=== PATIENT | female | born 1945 | race Caucasian/White ===

== ENCOUNTER → 2016-09-19 | Outpatient (CLI) | payer OTHER ==
[~2016-09-19] MED LIST: ATEN-173 PO; ATEN50TA8 PO; EPP3/2 INJ; LISI-787 PO; LPD600 PO; NAPR1CAP12 PO; OMEG10007 PO; OMEP20CA9 PO; SERT50TA PO
--- NOTE | 2016-09-19 13:55 | DIAGNOSTIC IMAGING REPORT ---
SOFT TIS HEAD/NECK-THYROID HISTORY: Multinodular goiter E04.2 Nontoxic multinodular goiter COMPARISON: 10/05/2014 FINDINGS: Right lobe: Heterogeneous internal architecture. Maximum dimension 4.8 cm. Several nodules are present measuring from 1.2 to1.5 cm maximum dimension. These are partially complex in terms of architecture and are unchanged from the prior exam. Left lobe: Maximum dimension 4.4 cm. Heterogeneous internal architecture. 2 nodules measuring 8 mm and 2.0 cm respectively. These are unchanged to slightly diminished in volume. Isthmus: No nodules. IMPRESSION: Findings consistent with a multi nodular goiter. Bilateral nodules are stable to perhaps slightly diminished in overall volume on the left. No new or interval process. The above report was generated using voice recognition software. It may contain grammatical, syntax or spelling errors. Electronically signed by: Vinod Jones M.D. 09/19/2016 1:53 PM Dictated Date/Time: 09/19/2016 1:44 PM
== END | disposition home or self-care (01) ==
LOC: C.ULTR 13:05
PROVIDERS: ATTEND Internal Medicine Endocrinology, Diabetes & Metabolism
DX: E04.2 Nontoxic multinodular goiter (principal)

== ENCOUNTER 2016-10-13 21:29 | Inpatient (IN) | payer OTHER ==
[~2016-10-13] VITALS: Ht 160 cm; Wt 79.2 kg
[~2016-10-13 21:29] MED LIST changes: -ATEN-173 PO; -LISI-787 PO; -NAPR1CAP12 PO
[2016-10-13] MEDS ORDERED: ONDANSETRON INJ 2 MG/ML 2 ML VIAL IV STA (21:40)
[2016-10-13] MEDS ORDERED: FENTANYL CITRATE INJ 50 MCG/1 ML 2 ML VIAL IV STA ×2 (21:40→22:10)
[2016-10-13 22:02] LABS: BASO % 0.4 %; BASO ABS # 0.04 K/uL (0-0.2); COMPLETE YES; HEMATOCRIT 40.2 % (37-47); IG% 0.2 %; LYMPH % 29.7 %; LYMPH ABS # 2.77 K/uL (1.2-3.4); MEAN CELL VOLUME 83.4 fL (80-100); MEAN CORPUSCULAR HEMOGLOBIN 28.6 pg (25-34); MEAN CORPUSCULAR HGB CONC 34.3 g/dl (32-36); MEAN PLATELET VOLUME 9.8 fL (7.4-10.4); MONO % 7.2 %; NEUT % 61.5 %; PLATELET COUNT 213 K/uL (130-400); RED BLOOD COUNT 4.82 M/uL (4.2-5.4); WHITE BLOOD COUNT 9.33 K/uL (4.8-10.8)
--- NOTE | 2016-10-13 22:05 | DIAGNOSTIC IMAGING REPORT ---
CHEST ONE VIEW PORTABLE HISTORY: 71 years-old Female acute chest pain. COMPARISON: Portable chest radiograph 05/08/2014, CTA of the chest 04/20/2013 TECHNIQUE: Portable upright AP view of the chest FINDINGS: Cardiomediastinal and hilar silhouettes are within normal limits. There is atherosclerosis of the aorta. Minimal biapical pleural-parenchymal scarring is noted without pneumothorax, pleural effusion or focal airspace consolidation. Subsegmental linear atelectasis or scarring involves the left lung base laterally. Lungs are mildly hyperinflated. Degenerative changes are seen about the bilateral shoulders. IMPRESSION: No acute cardiopulmonary process. The above report was generated using voice recognition software. It may contain grammatical, syntax or spelling errors. Electronically signed by: Tristin Hartman M.D. 10/13/2016 10:03 PM Dictated Date/Time: 10/13/2016 10:02 PM
[2016-10-13] MEDS ORDERED: ATEN-173 PO (22:12)
[2016-10-13 22:14] LABS: BUN/CREATININE RATIO 20.1 (10-20); CREATININE 0.86 mg/dl (0.60-1.20); POTASSIUM 2.9 mmol/L (3.5-5.1)
[2016-10-13] MEDS ORDERED: LISI-787 PO (22:14)
[2016-10-13 22:23] LABS: PROTHROMBIN TIME (PATIENT) 10.5 SECONDS (9.0-12.0)
[2016-10-13] MEDS ORDERED: POTASSIUM CHLORIDE 10 MEQ / 100ML WTR IV STA (22:26)
[2016-10-13] MEDS ORDERED: OPTIRAY 320 IV PRN (22:45)
--- NOTE | 2016-10-13 23:11 | DIAGNOSTIC IMAGING REPORT ---
(CHEST FOR PE) ANGIO WITH CT DOSE: 429.63 mGy.cm HISTORY: 71 years-old Female presents with acute shortness of breath. TECHNIQUE: Multiple CTA images of the chest were obtained after the intravenous administration of 88 ml Optiray 320. Coronal and sagittal MIPS were obtained from the axial data set and were submitted for review. A dose lowering technique was utilized adhering to the principles of ALARA. COMPARISON: Thyroid ultrasound 09/19/2016, CTA of the chest 04/20/2013. FINDINGS: CTA: Heart is mildly enlarged without pericardial effusion. There is mild mixed plaquing of the thoracic aorta without aneurysm or dissection. Coronary arterial calcifications are present. There is dilation of the main pulmonary artery, 3.1 cm suggesting underlying pulmonary arterial hypertension. The pulmonary arterial tree is well-opacified to the proximal subsegmental branches and demonstrates no focal filling defects to suggest pulmonary thromboembolic disease. CT CHEST: There is nodularity of the thyroid with a dominant left thyroid nodule measuring 2.0 x 1.2 cm. No pathologic adenopathy about the chest. There is no pneumothorax, pleural effusion or focal lobar airspace consolidation. Linear pleural-based subsegmental and groundglass opacities of the lung bases suggest atelectasis. The central airways are patent. There is a small fat filled hiatal hernia present. Soft tissues are unremarkable. Bones appear intact with mild multilevel spurring present throughout the thoracic spine. IMPRESSION: 1. No acute cardiopulmonary process, specifically no acute aortic pathology or pulmonary thromboembolic disease. 2. Subsegmental atelectasis of the lung bases. 3. Small hiatal hernia. 4. Multinodular thyroid redemonstrated. The above report was generated using voice recognition software. It may contain grammatical, syntax or spelling errors. Electronically signed by: Tristin Hartman M.D. 10/13/2016 11:10 PM Dictated Date/Time: 10/13/2016 11:00 PM
--- NOTE | 2016-10-13 23:19 | EMERGENCY ROOM VISIT NOTE ---
History Report prepared by Guilherme: Kelvin Quiroz Under the Supervision of: Dr. Jaspreet Albright M.D. First contact with patient: 21:37 Chief Complaint: CARDIAC ASSESSMENT Stated Complaint: CHEST PAINS Nursing Triage Summary: pt c/o left chest discomfort since . pt states "certain ways I move it' s stabbing." pt c/o some SOB when pain becomes stabbing. pt states pain radiates down left arm. pt states she has gastric stimulator in her back for her bowels that will "mess up a EKG" History of Present Illness The patient is a 71 year old female who presents to the Emergency Room with complaints of worsening sharp chest pain over the past few days. The patient states that the pain is worsened with movement and deep inspiration. She states that she is short of breath. The patient denies any leg swelling, leg pain, fever, cough, or recent falls or traumas. She has a history of hypertension, though she denies any history of heart disease. Source of History: patient Onset: few days ago Position: chest Symptom Intensity: severe Quality: sharp Timing: worsening Modifying Factors (Worsening): breathing, movement Associated Symptoms: + SOB, No fevers, No cough Review of Systems See HPI for pertinent positives & negatives. A total of 10 systems reviewed and were otherwise negative. Past Medical & Surgical Medical Problems: (1) Bronchitis (2) Chest pain (3) Headache (4) Headache (5) Hypertension (6) Hypertension Family History Diabetes mellitus Hypertension Social History Smoking Status: Former Smoker Alcohol Use: none Drug Use: none Marital Status: Housing Status: lives with family Occupation Status: retired Current/Historical Medications Scheduled Atenolol (Tenormin), 50 MG PO DAILY Atenolol (Tenormin), 25 MG PO DAILY Lisinopril & Hydrochlorothiazi (Zestoretic 20-12.5 mg), 1 TAB PO DAILY Omeprazole (Prilosec), 20 MG PO DAILY Sertraline (Zoloft), 50 MG PO DAILY Scheduled PRN Epinephrine (Epipen 2-Toño), 0.3 MG INJ UD PRN for ALLERGIC REACTION Allergies Coded Allergies: Diazepam (Unverified Allergy, Mild, 10/13/16) Morphine (Unverified Allergy, Mild, 10/13/16) Doxycycline (Verified Allergy, Unknown, ANAPHYLAXIS, 10/13/16) Sulfa Drugs (Verified Allergy, Unknown, ., 10/13/16) Physical Exam Vital Signs Date Time Temp Pulse Resp B/P (MAP) Pulse Ox O2 Delivery O2 Flow Rate FiO2 10/13/16 22:12 72 15 139/73 91 Room Air 10/13/16 22:01 71 10/13/16 21:51 96 Room Air 10/13/16 21:36 96 Room Air 10/13/16 21:31 36.8 83 22 138/79 96 Room Air Physical Exam Constitutional: Vital signs reviewed. Patient is writhing with pain. Eyes: Pupils are equal round reactive to light. Conjunctiva are noninjected. ENT: Pharynx is clear without erythema or exudate. Mucous membranes are moist. Neck supple without meningeal signs. Respiratory: Clear to auscultation bilaterally. Breath sounds are equal bilaterally. Cardiovascular: Regular rate and rhythm. No rubs or gallops. GI: Soft, nondistended and nontender. Bowel sounds are present. Musculoskeletal: Tenderness to the left upper chest wall with light palpation. No peripheral edema. No lower extremity tenderness. Integumentary: No cyanosis. Neurological: The patient is awake and alert. No focal deficits. Psychiatric: Anxious appearing. Medical Decision & Procedures ER Provider Diagnostic Interpretation: Radiology results as stated below per my review and the radiologist's interpretation: CHEST ONE VIEW PORTABLE HISTORY: 71 years-old Female acute chest pain. COMPARISON: Portable chest radiograph 05/08/2014, CTA of the chest 04/20/2013 TECHNIQUE: Portable upright AP view of the chest FINDINGS: Cardiomediastinal and hilar silhouettes are within normal limits. There is atherosclerosis of the aorta. Minimal biapical pleural-parenchymal scarring is noted without pneumothorax, pleural effusion or focal airspace consolidation. Subsegmental linear atelectasis or scarring involves the left lung base laterally. Lungs are mildly hyperinflated. Degenerative changes are seen about the bilateral shoulders. IMPRESSION: No acute cardiopulmonary process. The above report was generated using voice recognition software. It may contain grammatical, syntax or spelling errors. Electronically signed by: Tristin Hartman M.D. 10/13/2016 10:03 PM Dictated Date/Time: 10/13/2016 10:02 PM (CHEST FOR PE) ANGIO WITH CT DOSE: 429.63 mGy.cm HISTORY: 71 years-old Female presents with acute shortness of breath. TECHNIQUE: Multiple CTA images of the chest were obtained after the intravenous administration of 88 ml Optiray 320. Coronal and sagittal MIPS were obtained from the axial data set and were submitted for review. A dose lowering technique was utilized adhering to the principles of ALARA. COMPARISON: Thyroid ultrasound 09/19/2016, CTA of the chest 04/20/2013. FINDINGS: CTA: Heart is mildly enlarged without pericardial effusion. There is mild mixed plaquing of the thoracic aorta without aneurysm or dissection. Coronary arterial calcifications are present. There is dilation of the main pulmonary artery, 3.1 cm suggesting underlying pulmonary arterial hypertension. The pulmonary arterial tree is well-opacified to the proximal subsegmental branches and demonstrates no focal filling defects to suggest pulmonary thromboembolic disease. CT CHEST: There is nodularity of the thyroid with a dominant left thyroid nodule measuring 2.0 x 1.2 cm. No pathologic adenopathy about the chest. There is no pneumothorax, pleural effusion or focal lobar airspace consolidation. Linear pleural-based subsegmental and groundglass opacities of the lung bases suggest atelectasis. The central airways are patent. There is a small fat filled hiatal hernia present. Soft tissues are unremarkable. Bones appear intact with mild multilevel spurring present throughout the thoracic spine. IMPRESSION: 1. No acute cardiopulmonary process, specifically no acute aortic pathology or pulmonary thromboembolic disease. 2. Subsegmental atelectasis of the lung bases. 3. Small hiatal hernia. 4. Multinodular thyroid redemonstrated. The above report was generated using voice recognition software. It may contain grammatical, syntax or spelling errors. Electronically signed by: Tristin Hartman M.D. 10/13/2016 11:10 PM Dictated Date/Time: 10/13/2016 11:00 PM Laboratory Results 10/13/16 21:50 Red Blood Count 4.82, Mean Corpuscular Volume 83.4, Mean Corpuscular Hemoglobin 28.6, Mean Corpuscular Hemoglobin Concent 34.3, Mean Platelet Volume 9.8, Neutrophils (%) (Auto) 61.5, Lymphocytes (%) (Auto) 29.7, Monocytes (%) (Auto) 7.2, Eosinophils (%) (Auto) 1.0, Basophils (%) (Auto) 0.4, Neutrophils # (Auto) 5.74, Lymphocytes # (Auto) 2.77, Monocytes # (Auto) 0.67, Eosinophils # (Auto) 0.09, Basophils # (Auto) 0.04 10/13/16 21:50 Test 10/13/16 21:50 10/13/16 21:52 White Blood Count 9.33 K/uL (4.8-10.8) Red Blood Count 4.82 M/uL (4.2-5.4) Hemoglobin 13.8 g/dL (12.0-16.0) Hematocrit 40.2 % (37-47) Mean Corpuscular Volume 83.4 fL (80-100) Mean Corpuscular Hemoglobin 28.6 pg (25-34) Mean Corpuscular Hemoglobin Concent 34.3 g/dl (32-36) Platelet Count 213 K/uL (130-400) Mean Platelet Volume 9.8 fL (7.4-10.4) Neutrophils (%) (Auto) 61.5 % Lymphocytes (%) (Auto) 29.7 % Monocytes (%) (Auto) 7.2 % Eosinophils (%) (Auto) 1.0 % Basophils (%) (Auto) 0.4 % Neutrophils # (Auto) 5.74 K/uL (1.4-6.5) Lymphocytes # (Auto) 2.77 K/uL (1.2-3.4) Monocytes # (Auto) 0.67 K/uL (0.11-0.59) Eosinophils # (Auto) 0.09 K/uL (0-0.5) Basophils # (Auto) 0.04 K/uL (0-0.2) RDW Standard Deviation 40.3 fL (36.4-46.3) RDW Coefficient of Variation 13.4 % (11.5-14.5) Immature Granulocyte % (Auto) 0.2 % Immature Granulocyte # (Auto) 0.02 K/uL (0.00-0.02) Prothrombin Time 10.5 SECONDS (9.0-12.0) Prothromb Time International Ratio 1.0 (0.9-1.1) Activated Partial Thromboplast Time 25.7 SECONDS (21.0-31.0) Partial Thromboplastin Ratio 1.0 Anion Gap 7.0 mmol/L (3-11) Est Creatinine Clear Calc Drug Dose 60.6 ml/min Estimated GFR () 79.3 Estimated GFR (Non- 68.4 BUN/Creatinine Ratio 20.1 (10-20) Calcium Level 10.0 mg/dl (8.5-10.1) Magnesium Level 2.0 mg/dl (1.8-2.4) Bedside Troponin I < 0.030 ng/ml (0-0.045) Laboratory results as reviewed by me. Medications Administered Medications (Trade) Dose Ordered Sig/Kai Route Start Time Stop Time Status Last Admin Dose Admin Fentanyl Citrate (Fentanyl Inj) 50 mcg NOW STAT IV 10/13/16 21:40 10/13/16 21:42 DC 10/13/16 21:47 50 MCG Ondansetron HCl (Zofran Inj) 4 mg NOW STAT IV 10/13/16 21:40 10/13/16 21:42 DC 10/13/16 21:47 4 MG Fentanyl Citrate (Fentanyl Inj) 25 mcg NOW STAT IV 10/13/16 22:10 10/13/16 22:11 DC 10/13/16 22:17 25 MCG Potassium Chloride (Kcl 10 Meq / Wtr) 10 meq NOW STAT IV 10/13/16 22:26 10/13/16 22:27 DC 10/13/16 22:26 10 MEQ ECG Indication: chest pain Rate (beats per minute): 75 Rhythm: sinus rhythm Findings: ST depression (precordial leads), no ectopy Comparison ECG Date: 05/10/2014 Change: ST changes are new REPEAT EKG: Normal Sinus Rhythm at 68 beats per minute. Slight ST depression in the precordial and inferior leads which are not as prominent as previous. No ectopy. ED Course 2136: The patient was evaluated in room B2. A complete history and physical exam was performed. 2199: I reevaluated the patient, and her chest pain has significantly improved. I discussed her EKG, and they are going to do a repeat. 2228: I reevaluated the patient, and her O2 saturation was 89. She is going to get a CT scan. 0: I reevaluated the patient, and her chest pain is resolved. 2: I discussed the patient's case with Dr. Conde, and she is going to evaluated the patient for further treatment. Medical Decision This is a 71-year-old female who presents with chest pain. Differential diagnosis includes pleurisy, costochondritis, pneumothorax, acute [place], pulmonary embolism. I did perform a limited focused review of portions of the patient's old chart on the electronic medical record. The patient has had no recent pertinent visits to this hospital. I did evaluate the patient as noted above. The patient is presenting with significant pain to her left chest. It is reproducible in nature. IV access was established. The patient was placed on a continuous director occupational. I did treat the patient IV fentanyl and Zofran. I did order and personally review the patient's 12-lead EKG and chest x-ray as described above. Her twelve -lead EKG demonstrates ST depressions as described above. I did order and review the patient's blood work as noted in the electronic medical record. Troponin is negative. K is 2.9. I did treat her with IV KCL. I did reassess the patient. Her chest pain is significantly improved. I did discuss her abnormal EKG with her. I did repeat another EKG which showed improvement of the ST depressions. Her O2 saturation seems to be somewhere between 89 and 91 and so I did discuss obtaining a CT scan to rule out pulmonary embolism. I did order a CT of the chest. I did review the images myself as well as the radiology report as described above. There is no evidence of PE. On reassessment the patient is chest pain free. I did recommend hospitalization for repeat enzymes due to her EKG changes. I did discuss case with the hospitalist and case coordinator. Medication Reconcilliation Current Medication List: was personally reviewed by me Blood Pressure Screening Patient's blood pressure: Elevated blood pressure Blood pressure disposition: Referred to PCP Consults Time Called: [phone] Consulting Physician: Dr. Conde Returned Call: [phone] I discussed the patient's case with Dr. Conde, and she is going to evaluated the patient for further treatment. Impression Primary Impression: Acute chest pain Additional Impressions: Hypokalemia Abnormal EKG Scribe Attestation The scribe's documentation has been prepared under my direct and personally reviewed by me in its entirety. I confirm that the note above accurately reflects all work, treatment, procedures, and medical decision making performed by me. Departure Information Dispostion Being Evaluated By Hospitalist Referrals Kalani Reina PA-C (PCP) Patient Instructions My [facility] Problem Qualifiers
[2016-10-14] MEDS ORDERED: NITROGLYCERIN OINT 2% 1GM PACKET ONE (00:07)
[2016-10-14] MEDS ORDERED: ASPIRIN 81 MG CHEW PO STA (00:07)
[2016-10-14] MEDS ORDERED: ASPIRIN 324 MG CHEW ONE (00:07)
[2016-10-14] MEDS ORDERED: ACETAMINOPHEN 325 MG TAB PO PRN (00:15)
[2016-10-14] MEDS ORDERED: ONDANSETRON INJ 2 MG/ML 2 ML VIAL IV PRN (00:15)
[2016-10-14] MEDS ORDERED: NITROGLYCERIN 0.4 MG SL PER TAB CHARGE SL PRN (00:15)
[2016-10-14] MEDS ORDERED: ALUMINUM/MAGNESIUM/SIMETH (MAALOX MAX) 30 ML UDC PO PRN (00:15)
[2016-10-14] MEDS ORDERED: MAGNESIUM HYDROXIDE SUSP 30 ML UDC PO PRN (00:15)
[2016-10-14] MEDS ORDERED: POLYETHYLENE (MIRALAX) 17 GM PACK PO PRN (00:15)
[2016-10-14] MEDS ORDERED: EPINEPHRINE ADULT AUTO-INJECT 0.3 MG SYR IM PRN (00:15)
[2016-10-14] MEDS ORDERED: POTASSIUM CHLORIDE 10 MEQ TABCR ONE (00:19)
--- NOTE | 2016-10-14 00:20 | History and Physical ---
History & Physical Date & Time of Service: Oct 14, 2016 at 00:20 Chief Complaint: Chest Pains Primary Care Physician: Kalani Reina PA-C History of Present Illness Source: patient 71-year-old female with past medical history of hypertension presents to the ER with complaints of chest pain which started about 4 days ago. The pain is on the left side of her chest, constant, stabbing in nature with worsening about 10/10 in severity but otherwise at 4-5/ 10 in severity with radiation along her left arm. She also has some shortness of breath associated with the pain. Denies any palpitations, dizziness or lightheadedness. The pain is worse on exertion. The patient denied any history of heart disease but has a family history of heart disease in mother in her 50s and her father in his 60s. She currently does not smoke and had quit 20 years ago. Denies any fevers or chills, coughing, trauma to the chest. Denies any recent long travels, immobilization, calf Swelling or tenderness. Past Medical/Surgical History Medical Problems: (1) Bronchitis Status: Resolved (2) Chest pain Status: Resolved (3) Headache Status: Resolved (4) Headache Status: Resolved (5) Hypertension Status: Chronic (6) Hypertension Status: Chronic Family History Diabetes mellitus Hypertension Social History Smoking Status: Former Smoker Smokeless Tobacco Use: No Alcohol Use: none Drug Use: none Marital Status: Housing status: lives with family Occupational Status: retired Immunizations History of Influenza Vaccine: Unknown History of Tetanus Vaccine?: Unknown History of Pneumococcal: Unknown History of Hepatitis B Vaccine: Unknown Multi-Drug Resistant Organisms History of MDRO: No Allergies Coded Allergies: Diazepam (Unverified Allergy, Mild, 10/13/16) Morphine (Unverified Allergy, Mild, 10/13/16) Doxycycline (Verified Allergy, Unknown, ANAPHYLAXIS, 10/13/16) Sulfa Drugs (Verified Allergy, Unknown, ., 10/13/16) Home Medications Scheduled Atenolol (Tenormin), 50 MG PO DAILY Atenolol (Tenormin), 25 MG PO DAILY Gemfibrozil (Gemfibrozil), 600 MG PO BID Lisinopril & Hydrochlorothiazi (Zestoretic 20-12.5 mg), 1 TAB PO DAILY Omeprazole (Prilosec), 20 MG PO DAILY Sertraline (Zoloft), 50 MG PO DAILY Scheduled PRN Epinephrine (Epipen 2-Toño), 0.3 MG INJ UD PRN for ALLERGIC REACTION Naproxen Sodium (Aleve), 1 CAP PO Q8 PRN for Pain Review of Systems Constitutional: No fever, No chills Eyes: No worsening of vision ENT: No hearing loss Respiratory: + shortness of breath, No cough, No sputum Cardiovascular: + chest pain Abdomen: No pain, No nausea, No vomiting, No diarrhea Musculoskeletal: No joint pain Genitourinary - Female: No dysuria, No urinary frequency, No urinary urgency Neurologic: No memory loss Psychiatric: No depression symptoms Endocrine: No fatigue Hematologic / Lymphatic: No abnormal bleeding/bruising Integumentary: No rash Physical Exam Vital Signs Date Time Temp Pulse Resp B/P (MAP) Pulse Ox O2 Delivery O2 Flow Rate FiO2 10/14/16 00:03 71 16 134/71 96 Room Air 10/13/16 22:12 72 15 139/73 91 Room Air 10/13/16 22:01 71 10/13/16 21:51 96 Room Air 10/13/16 21:36 96 Room Air 10/13/16 21:31 36.8 83 22 138/79 96 Room Air General Appearance: WD/WN, no apparent distress Head: normocephalic ENT: hearing grossly normal Neck: supple Respiratory/Chest: lungs clear, normal breath sounds, no respiratory distress, no accessory muscle use, + pertinent finding (tenderness on palpation of anterior chest) Cardiovascular: regular rate, rhythm Abdomen/GI: non tender, soft Back: normal range of motion Extremities/Musculoskelatal: no pedal edema Neurologic/Psych: alert, normal mood/affect, oriented x 3 Diagnostics Laboratory Results Results Past 24 Hours Test 10/13/16 21:50 10/13/16 21:52 10/14/16 00:07 Range/Units White Blood Count 9.33 4.8-10.8 K/uL Red Blood Count 4.82 4.2-5.4 M/uL Hemoglobin 13.8 12.0-16.0 g/dL Hematocrit 40.2 37-47 % Mean Corpuscular Volume 83.4 80-100 fL Mean Corpuscular Hemoglobin 28.6 25-34 pg Mean Corpuscular Hemoglobin Concent 34.3 32-36 g/dl Platelet Count 213 130-400 K/uL Mean Platelet Volume 9.8 7.4-10.4 fL Neutrophils (%) (Auto) 61.5 % Lymphocytes (%) (Auto) 29.7 % Monocytes (%) (Auto) 7.2 % Eosinophils (%) (Auto) 1.0 % Basophils (%) (Auto) 0.4 % Neutrophils # (Auto) 5.74 1.4-6.5 K/uL Lymphocytes # (Auto) 2.77 1.2-3.4 K/uL Monocytes # (Auto) 0.67 0.11-0.59 K/uL Eosinophils # (Auto) 0.09 0-0.5 K/uL Basophils # (Auto) 0.04 0-0.2 K/uL RDW Standard Deviation 40.3 36.4-46.3 fL RDW Coefficient of Variation 13.4 11.5-14.5 % Immature Granulocyte % (Auto) 0.2 % Immature Granulocyte # (Auto) 0.02 0.00-0.02 K/uL Prothrombin Time 10.5 9.0-12.0 SECONDS Prothromb Time International Ratio 1.0 0.9-1.1 Activated Partial Thromboplast Time 25.7 21.0-31.0 SECONDS Partial Thromboplastin Ratio 1.0 Sodium Level 138 136-145 mmol/L Potassium Level 2.9 3.5-5.1 mmol/L Chloride Level 100 98-107 mmol/L Carbon Dioxide Level 31 21-32 mmol/L Anion Gap 7.0 3-11 mmol/L Blood Urea Nitrogen 17 7-18 mg/dl Creatinine 0.86 0.60-1.20 mg/dl Est Creatinine Clear Calc Drug Dose 60.6 ml/min Estimated GFR () 79.3 Estimated GFR (Non- 68.4 BUN/Creatinine Ratio 20.1 10-20 Random Glucose 114 70-99 mg/dl Calcium Level 10.0 8.5-10.1 mg/dl Magnesium Level 2.0 1.8-2.4 mg/dl Bedside Troponin I < 0.030 0-0.045 ng/ml Diagnostic Radiology CHEST ONE VIEW PORTABLE HISTORY: 71 years-old Female acute chest pain. COMPARISON: Portable chest radiograph 05/08/2014, CTA of the chest 04/20/2013 TECHNIQUE: Portable upright AP view of the chest FINDINGS: Cardiomediastinal and hilar silhouettes are within normal limits. There is atherosclerosis of the aorta. Minimal biapical pleural-parenchymal scarring is noted without pneumothorax, pleural effusion or focal airspace consolidation. Subsegmental linear atelectasis or scarring involves the left lung base laterally. Lungs are mildly hyperinflated. Degenerative changes are seen about the bilateral shoulders. IMPRESSION: No acute cardiopulmonary process. (CHEST FOR PE) ANGIO WITH CT DOSE: 429.63 mGy.cm HISTORY: 71 years-old Female presents with acute shortness of breath. TECHNIQUE: Multiple CTA images of the chest were obtained after the intravenous administration of 88 ml Optiray 320. Coronal and sagittal MIPS were obtained from the axial data set and were submitted for review. A dose lowering technique was utilized adhering to the principles of ALARA. COMPARISON: Thyroid ultrasound 09/19/2016, CTA of the chest 04/20/2013. FINDINGS: CTA: Heart is mildly enlarged without pericardial effusion. There is mild mixed plaquing of the thoracic aorta without aneurysm or dissection. Coronary arterial calcifications are present. There is dilation of the main pulmonary artery, 3.1 cm suggesting underlying pulmonary arterial hypertension. The pulmonary arterial tree is well-opacified to the proximal subsegmental branches and demonstrates no focal filling defects to suggest pulmonary thromboembolic disease. CT CHEST: There is nodularity of the thyroid with a dominant left thyroid nodule measuring 2.0 x 1.2 cm. No pathologic adenopathy about the chest. There is no pneumothorax, pleural effusion or focal lobar airspace consolidation. Linear pleural-based subsegmental and groundglass opacities of the lung bases suggest atelectasis. The central airways are patent. There is a small fat filled hiatal hernia present. Soft tissues are unremarkable. Bones appear intact with mild multilevel spurring present throughout the thoracic spine. IMPRESSION: 1. No acute cardiopulmonary process, specifically no acute aortic pathology or pulmonary thromboembolic disease. 2. Subsegmental atelectasis of the lung bases. 3. Small hiatal hernia. 4. Multinodular thyroid redemonstrated. Impression Assessment and Plan 71-year-old female with past medical history of hypertension presents to the ER with complaints of left-sided precordial chest pain which started about 4 days ago associated with some shortness of breath, worse on exertion. Her initial EKG was concerning for ST changes which seemed to have resolved after fentanyl administered in the ER. Though her chest pain is reproducible on palpation of the anterior chest especially on the left side indicating possible costochondritis, considering EKG changes, strong family history of heart disease her chest pain could be cardiac in origin Precordial chest pain: Unstable angina versus costochondritis - Initial EKG: ST wave changes in the precordial chest leads - Initial troponin negative, troponins trended every 8 hours - Chest x-ray negative for any acute changes - CTA chest negative for PE - Aspirin, Nitropaste - Fasting lipid panel, EKG in am - Cardiology consult Hypokalemia: - Initial K at 2.9, repleted Hypertension: - Continue atenolol 75 mg daily, lisinopril/hydrochlorothiazide GERD: Continue omeprazole Depression: -Continue Zoloft DVT prophylaxis: SCDs Full code Disposition: Admitted to telemetry Attending Addendum: I have physically seen and examined this patient, have supervised the medical residents activities, and agree with the H&P as noted above with the following exceptions as noted. The patient presented to the ED with left-sided chest pain with radiation to her left arm and shortness of breath. The patient denies palpitations, cough, lower extremity swelling, sore throat, fevers, chills, sweats, weight change, fatigue, nausea, vomiting, diarrhea or constipation, abdominal pain, pelvic pain, blood in urine or stool, dysuria, urinary frequency or urgency, lightheadedness, dizziness, headache, memory loss , rash, abnormal bruising or bleeding, imbalance, focal or generalized weakness , numbness or tingling in arms or legs, generalized arthralgias or myalgias, back or neck pain, night sweats. The review of systems is otherwise negative other than for that already noted above, and at least 10 systems have been reviewed. The patient is awake, well-developed and adequately nourished, alert and oriented 3, normocephalic and atraumatic, lying in bed and in no acute distress. HEENT--PERRL, EOMI, mucous membranes and oropharynx dry. Neck--supple, no JVD or bruits, thyroid normal, trachea midline, no adenopathy. Heart--normal S1 and S2, no extra beats, no murmurs, rubs or gallops. Lungs--clear bilaterally with good air movement, no respiratory distress, no accessory muscle use. Abdomen--normal bowel sounds and soft, nontender and nondistended, no hernias or masses, no organomegaly. Extremities--no cyanosis, clubbing or edema. There are good distal pulses b/l. Dermatologic--normal skin turgor, normal color, warm and dry, no abnormal lymph nodes, no rash. Neurologic--cranial nerves II through XII grossly intact. Rheumatologic--normal range of motion, nontender, muscles and joints. Psychiatric--normal affect. Assessment and Plan: 1. Precordial chest pain/hypertension--The patient will be admitted to telemetry for serial cardiac enzymes, cardiac rhythm monitoring and a 2-D echocardiogram with Dopplers. EKG shows nonspecific ST-T changes in the Precordial chest leads Continue atenolol 75 mg by mouth daily and lisinopril/HCTZ 20/12.5 daily. Hypokalemia 2.9, replete both orally and IV. 2. GERD--change omeprazole to pantoprazole. 3. Depression --continue sertraline 50 mg by mouth daily. Level of Care Telemetry Advanced Directives Existing Advance Directive: No Existing Living Will: No Existing Power of Talent Acquisition Assistant: No Resuscitation Status FULL RESUSCITATION VTE Prophylaxis VTE Risk Assessment Done? Y/N: Yes Risk Level: Moderate Given or contraindicated: SCD's Social Service Consult None Apply Resident Tracking Resident Involvement: Resident Care Provided Care Provided: Adult Hospital Medicine
[2016-10-14] MEDS ORDERED: POTASSIUM CHLORIDE 10 MEQ TABCR PO STA (00:37)
[2016-10-14 01:30] VITALS: BP 137/80; PULSE 62; TEMP 37; O2SAT 95; Ht 160 cm; Wt 79.2 kg
[2016-10-14] MEDS: NITROGLYCERIN OINT 2% 1GM PACKET EXT SCH ×2 (05:30→12:00)
[2016-10-14 06:41] LABS: HEMATOCRIT 36.9 % (37-47); MEAN CELL VOLUME 85.2 fL (80-100); MEAN CORPUSCULAR HEMOGLOBIN 28.2 pg (25-34); MEAN CORPUSCULAR HGB CONC 33.1 g/dl (32-36); MEAN PLATELET VOLUME 9.7 fL (7.4-10.4); PLATELET COUNT 189 K/uL (130-400); RED BLOOD COUNT 4.33 M/uL (4.2-5.4); WHITE BLOOD COUNT 9.34 K/uL (4.8-10.8)
[2016-10-14 07:14] LABS: BLOOD UREA NITROGEN 15 mg/dl (7-18); BUN/CREATININE RATIO 16.3 (10-20); CALCIUM 9.2 mg/dl (8.5-10.1); CARBON DIOXIDE 30 mmol/L (21-32); CHLORIDE 107 mmol/L (98-107); CREATININE 0.89 mg/dl (0.60-1.20); GLUCOSE 104 mg/dl (70-99); POTASSIUM 4.4 mmol/L (3.5-5.1); SODIUM 142 mmol/L (136-145)
[2016-10-14 07:27] VITALS: BP 124/77; PULSE 50; TEMP 36.4; O2SAT 93
[2016-10-14 08:00] VITALS: O2SAT 93
[2016-10-14] MEDS ORDERED: SERTRALINE HCL 50 MG TAB PO SCH (09:00)
[2016-10-14] MEDS ORDERED: PANTOprazole SOD 40 MG TAB PO SCH (09:00)
[2016-10-14] MEDS ORDERED: LISINOPRIL 20 MG TAB PO SCH (09:00)
[2016-10-14] MEDS ORDERED: LISINOPRIL/HCTZ 20/12.5MG TAB PO SCH (09:00)
[2016-10-14 09:43] LABS: CHOLESTEROL/HDL RATIO 6.1
[2016-10-14 11:50] VITALS: BP 116/69; PULSE 51; TEMP 37; O2SAT 94
[2016-10-14 12:00] VITALS: O2SAT 93
[2016-10-14] MEDS ORDERED: NAPR1CAP12 PO (13:14)
[2016-10-14] MEDS ORDERED: LPD600 PO (13:14)
--- NOTE | 2016-10-14 13:22 | ECHOCARDIOGRAM REPORT ---
*NOTICE TO RECEIVING [employer] This information is strictly Confidential and protected under [place] law. [place] law prohibits you from making any further disclosure of this information unless further disclosure is expressly permitted by the written consent of the person to whom it pertains or is authorized by law. A general authorization for the release of medical or other information is not sufficient for this purpose. Hospital accepts no responsibility if the information is made available to any other person, INCLUDING THE PATIENT. Interpretation Summary * Name: PATRICE MOREIRA Study Date: 10/14/2016 10:21 AM BP: 124/77 mmHg * Patient Location: [facility]\S\N281\S\1 HR: 61 * : 1945 (M/d/y) Gender: Female Height: 63 in * Age: 71 yrs Ethnicity: [place] Weight: 174 lb * Ordering Physician: Anjana Marin * Referring Physician: Self, Referred * Performed By: Tangela Martinez RCS * * Reason For Study: Chest pain * BSA: 1.8 m2 * -- Conclusions -- * 1. Normal LV size. Mild concentric LVH. * 2. Normal LV systolic function. LVEF 60-65%. No regional wall motion abnormalities. * 3. Normal RV size and function. * 4. Mild aortic regurgitation. * 5. No prior studies for comparison. Procedure Details * Left Ventricle The left ventricle is grossly normal size. There is mild concentric left ventricular hypertrophy. Ejection Fraction = 60-65%. No regional wall motion abnormalities noted. * Right Ventricle The right ventricle is grossly normal size. The right ventricular systolic function is normal as assessed by tricuspid annular plane systolic excursion (TAPSE) (normal >1.5 cm). * Atria The left atrial size is normal. Right atrial size is normal. No ASD detected; PFO is not assessed. * Mitral Valve The mitral valve is grossly normal. Mitral stenosis is absent. There is trace mitral regurgitation. * Tricuspid Valve The tricuspid valve is not well visualized. Significant tricuspid regurgitation is absent. * Aortic Valve The aortic valve opens well. The aortic valve is trileaflet. No hemodynamically significant valvular aortic stenosis. Mild aortic regurgitation. * Pulmonic Valve The pulmonary valve is inadequately visualized, but the Doppler data is adequate for interpretation. Pulmonic stenosis is absent. There is no significant pulmonary regurgitation. * Great Vessels The aortic root and proximal ascending aorta are normal sized. No Doppler or imaging evidence of an aortic coarctation. * Pericardium/Pleural Trivial pericardial effusion * Great Vessels Normal inferior vena cava size and collapsability with sniff indicates a normal right atrial pressure of 3 mmHg * * MMode 2D Measurements and Calculations * IVSd 1.1 cm * * LVIDd 4.4 cm * LVIDs 2.8 cm * LVPWd 1.2 cm * * IVS/LVPW 0.87 * FS 36.3 % * EDV(Teich) 87.6 ml * ESV(Teich) 29.5 ml * EF(Teich) 66.3 % * * EDV(cubed) 85.0 ml * ESV(cubed) 21.9 ml * EF(cubed) 74.2 % * * LV mass(C)d 179.3 grams * LV mass(C)dI 98.4 grams/m\S\2 * * SV(Teich) 58.0 ml * SI(Teich) 31.8 ml/m\S\2 * SV(cubed) 63.1 ml * SI(cubed) 34.6 ml/m\S\2 * * LVAd ap4 29.3 cm\S\2 * LVLd ap4 7.6 cm * EDV(MOD-sp4) 92.1 ml * LVAs ap4 15.1 cm\S\2 * LVLs ap4 6.1 cm * ESV(MOD-sp4) 31.3 ml * EF(MOD-sp4) 66.0 % * * LVAd ap2 25.5 cm\S\2 * LVLd ap2 7.9 cm * EDV(MOD-sp2) 69.1 ml * LVAs ap2 11.1 cm\S\2 * LVLs ap2 6.1 cm * ESV(MOD-sp2) 17.7 ml * EF(MOD-sp2) 74.4 % * * SV(MOD-sp4) 60.8 ml * SI(MOD-sp4) 33.4 ml/m\S\2 * * SV(MOD-sp2) 51.4 ml * SI(MOD-sp2) 28.2 ml/m\S\2 * * * * * Doppler Measurements and Calculations * MV E max bertha 82.0 cm/sec * MV A max bertha 85.9 cm/sec * * MV E/A 0.95 * * MV dec time 0.19 sec * * Ao V2 max 125.5 cm/sec * Ao max PG 6.3 mmHg * Ao max PG (full) 0.40 mmHg * * LV V1 max PG 5.9 mmHg * LV V1 mean PG 2.6 mmHg * * LV V1 max 121.4 cm/sec * LV V1 mean 73.9 cm/sec * LV V1 VTI 23.7 cm * * * *
--- NOTE | 2016-10-14 13:22 | Discharge Instructions ---
Discharge Instructions Date of Service Oct 14, 2016. Admission Reason for Admission: Precordial Chest Pain Discharge Discharge Diagnosis / Problem: Chest pain Discharge Goals Goal(s): Decrease discomfort, Diagnostic testing, Therapeutic intervention Activity Recommendations Activity Limitations: resume your previous activity (as tolerated) . Instructions / Follow-Up Instructions / Follow-Up You were admitted to the hospital for overnight observation after presenting with chest pain. You were placed on a telemetry unit where your heart rhythm was monitored. This did not reveal any arrhythmias or acute cardiac events. Your cardiac enzymes remained normal. A cholesterol panel did reveal elevated triglycerides. An echocardiogram, or ultrasound of the heart, was performed, and this was normal. The home care consultant saw you and does not believe the chest pain is cardiac in nature. The chest pain appears to be secondary to the trauma you had to the area and is musculoskeletal, as the pain is reproducible with palpation and is worse with certain movements. Medications: *You may take Aleve 1 capsule by mouth up to eery 8 hours as needed for pain. *Please take gemfibrozil (Lopid) 600 mg by mouth twice a day. This medication is to treat your elevated triglycerides. *Continue your other home medications as prescribed. Follow up: *Please follow up with your primary care provider within 1 week regarding your hospital stay and changes to your medications. *Please follow up with your home care consultant, Dr. Aguilar, in 2-3 weeks. You can be scheduled for an outpatient stress test at that time. Please seek medical attention if you experience fevers, chills, sweats, lightheadedness/dizziness, loss of consciousness, chest pain, shortness of breath, nausea, vomiting, numbness or tingling. Current Hospital Diet Patient's current hospital diet: AHA Diet (Heart Healthy) Discharge Diet Recommended Diet: AHA Diet (Heart Healthy) Procedures Procedures Performed: Echocardiogram Pending Studies Studies pending at discharge: yes List of pending studies: Final echo read Laboratory Results Lipid Panel Test 10/14/16 06:18 Range/Units Triglycerides Level 372 H 0-150 mg/dl Cholesterol Level 224 H 0-200 mg/dl HDL Cholesterol 37 mg/dl Cholesterol/HDL Ratio 6.1 LDL Cholesterol, Calculated 113 mg/dl Medical Emergencies . Who to Call and When: Medical Emergencies: If at any time you feel your situation is an emergency, please call 911 immediately. . Non-Emergent Contact Non-Emergency issues call your: Primary Care Provider, Phy Therapist Call Non-Emergent contact if: you have a fever, your pain is not controlled, your pain is worsening, your pain is unusual for you, your pain is concerning you, you have any medication questions . Past History Medical & Surgical History: (1) Precordial chest pain . "Provider Documentation" section prepared by Anjana Marin. . VTE Core Measure Inpt VTE Proph given/why not?: SCD's
[2016-10-14 13:29] VITALS: BP 116/69; PULSE 51; TEMP 37; O2SAT 93
--- NOTE | 2016-10-14 14:08 | CARDIOLOGY CONSULTATION ---
DATE OF CONSULTATION: 10/14/2016 CONSULTING PHYSICIAN: Dr. Yu. REASON FOR CONSULTATION: Chest pain. HISTORY OF PRESENT ILLNESS: Ms. Levi is a pleasant 71-year-old woman with a history of multinodular goiter and hypertension, who presented yesterday with intermittent chest pain for the last 3 days. The patient has no prior cardiac history. She has never had a stress test or heart catheterization in the past. She states she has been in her usual state of health up until , when initially developed some substernal chest pain. This seemed to be worse with movement and changes in position. She did notice some mild associated shortness of breath, which was altogether new. Denied any diaphoresis, palpitations or radiation of discomfort. Pain has persisted and as a result, she presented to the ED last night. In the ED, she had initial EKG, which showed some subtle new ST depressions in V2 and V3. These had resolved on subsequent EKGs. Troponins have been negative x3. Chest x-ray was unremarkable as was CTA, which showed no pulmonary embolus or other acute intrathoracic processes. PAST MEDICAL HISTORY: 1. Multinodular goiter. 2. Hypertension. 3. Headaches. FAMILY HISTORY: Brother had bypass surgery in his 60s or 70s. Mother and father both had heart problems and diabetes. SOCIAL HISTORY: She is . She has 2 grown children. Smoked up until 20 years ago. Denies heavy alcohol or other drugs. REVIEW OF SYSTEMS: Ten point review of systems completed and otherwise negative unless stated in HPI. PHYSICAL EXAMINATION: VITAL SIGNS: Temperature 36.4, pulse 50, blood pressure 124/77, and satting 93% on room air. GENERAL: The patient appears comfortable in no acute distress. She is obese. HEENT: Sclerae are anicteric. Oropharynx is clear. Mucous membranes are moist. NECK: Supple with no lymphadenopathy. She has no jugular venous distention. She has no bruits. LUNGS: Clear to auscultation bilaterally. CARDIAC: She has a regular rate and rhythm with no significant murmurs appreciated. She has tenderness to palpation over her left chest wall. ABDOMEN: Soft, nontender, and nondistended with positive bowel sounds. EXTREMITIES: Warm. She has intact distal pulses including 2+ radial pulses bilaterally. SKIN: Shows no rashes or lesions. NEUROLOGIC: Nonfocal. PSYCHIATRIC: She is alert, oriented and appropriate. LABORATORY DATA: Sodium 142, potassium 4.4, BUN 15, and creatinine of 0.89. Troponins have been negative x3. Total cholesterol 224, triglycerides 372, LDL 113, and HDL 37. INR 1.0. Hemoglobin of 12.2 and platelets of 189. IMAGING: Chest x-ray shows no acute cardiopulmonary process. CTA shows no evidence of PE or aortic pathology, subsegmental atelectasis and a small hiatal hernia. Echo reviewed, preliminarily shows normal LV function with no regional wall motion abnormalities, normal RV size and function, and mild aortic insufficiency. Telemetry reviewed. No significant events overnight. EKGs: Last EKG this morning shows sinus rhythm at a ventricular rate of [address] changes anteriorly. IMPRESSION AND PLAN: 1. Atypical chest pain. 2. Hypertension. 3. Dyslipidemia. 4. History of coronary artery disease. 5. Remote tobacco use. The patient is here with 3 days of intermittent atypical chest pain. Suspicion high that this pain is musculoskeletal related. However, the patient does have cardiac risk factors and had subtle EKG changes on presentation. In that setting, feel that additional risk stratification is warranted at some point. Patient not interested in attempting test today. Can be scheduled as an outpatient. From a cardiac standpoint Ok for discharge today. Thank you for allowing us to participate in the care of this patient. Please contact with any questions. JORDANA
--- NOTE | 2016-10-14 15:35 | Discharge Summary ---
Discharge Summary Date of Service Oct 14, 2016. Discharge Summary Admission Date: Oct 14, 2016 at 00:20 Discharge Date: Oct 14, 2016 Discharge Disposition: Home Principal Diagnosis: Chest pain Procedures: Echocardiogram: Interpretation Summary * Name: PATRICE MOREIRA Study Date: 10/14/2016 10:21 AM BP: 124/77 mmHg * Patient Location: [facility]\\81\S\1 HR: 61 * : 1945 (M/d/yyyy) Gender: Female Height: 63 in * Age: 71 yrs Ethnicity: [place] Weight: 174 lb * Ordering Physician: Anjana Marin * Referring Physician: Self, Referred * Performed By: Tangela Martinez RCS * * Reason For Study: Chest pain * BSA: 1.8 m2 * -- Conclusions -- * 1. Normal LV size. Mild concentric LVH. * 2. Normal LV systolic function. LVEF 60-65%. No regional wall motion abnormalities. * 3. Normal RV size and function. * 4. Mild aortic regurgitation. * 5. No prior studies for comparison. Procedure Details * Left Ventricle The left ventricle is grossly normal size. There is mild concentric left ventricular hypertrophy. Ejection Fraction = 60-65%. No regional wall motion abnormalities noted. * Right Ventricle The right ventricle is grossly normal size. The right ventricular systolic function is normal as assessed by tricuspid annular plane systolic excursion (TAPSE) (normal >1.5 cm). * Atria The left atrial size is normal. Right atrial size is normal. No ASD detected; PFO is not assessed. * Mitral Valve The mitral valve is grossly normal. Mitral stenosis is absent. There is trace mitral regurgitation. * Tricuspid Valve The tricuspid valve is not well visualized. Significant tricuspid regurgitation is absent. * Aortic Valve The aortic valve opens well. The aortic valve is trileaflet. No hemodynamically significant valvular aortic stenosis. Mild aortic regurgitation. * Pulmonic Valve The pulmonary valve is inadequately visualized, but the Doppler data is adequate for interpretation. Pulmonic stenosis is absent. There is no significant pulmonary regurgitation. * Great Vessels The aortic root and proximal ascending aorta are normal sized. No Doppler or imaging evidence of an aortic coarctation. * Pericardium/Pleural Trivial pericardial effusion * Great Vessels Normal inferior vena cava size and collapsability with sniff indicates a normal right atrial pressure of 3 mmHg Consultations: Cardiology--Dr. Givens Medication Reconciliation New Medications: Gemfibrozil (Gemfibrozil) 600 Mg Tab 600 MG PO BID for 30 Days, #60 TABS Naproxen Sodium (Aleve) 220 Mg Cap 1 CAP PO Q8 PRN for Pain for 3 Days, #9 CAP Continued Medications: Atenolol (Tenormin) 50 Mg Tab 50 MG PO DAILY take 50mg with a 25mg tablet for a total dose of 75mg daily Atenolol (Tenormin) 25 Mg Tab 25 MG PO DAILY, TAB take 25mg with a 50mg tablet for a total dose of 75mg daily Epinephrine (Epipen 2-Toño) 0.3 Mg Inj 0.3 MG INJ UD PRN for ALLERGIC REACTION Lisinopril & Hydrochlorothiazi (Zestoretic 20-12.5 mg) 1 Tab Tab 1 TAB PO DAILY Omeprazole (Prilosec) 20 Mg Cap 20 MG PO DAILY Sertraline (Zoloft) 50 Mg Tab 50 MG PO DAILY, 0 Refills Discharge Exam Patient complains of a 3/10 sharp pain on the left side of her chest. The pain is worse with certain movements and with palpation of that area. She does admit that she recently had trauma to that area when she tripped on her cat and fell against her towel rack in the bathroom. She denies any other complaints. The patient denies fevers, chills, sweats, palpitations, claudication, cough, wheezing, shortness of breath, nausea, vomiting, abdominal pain, dysuria, hematuria, urinary retention, paralysis, weakness, numbness and tingling. Review of Systems: Constitutional: No fever, No chills, No sweats Eyes: No worsening of vision, No eye pain, No diplopia ENT: No hearing loss, No sore throat, No trouble swallowing Respiratory: No cough, No wheezing, No shortness of breath Cardiovascular: + chest pain, No claudication, No palpitations Abdomen: No pain, No nausea, No vomiting Musculoskeletal: No joint pain, No muscle pain, No swelling Genitourinary - Female: No dysuria, No urinary retention, No hematuria Genitourinary - Male: No hematuria, No dysuria, No urinary retention Neurologic: No paralysis, No weakness, No numbness/tingling Integumentary: No rash, No itch, No color change Physical Exam: General Appearance: WD/WN, no apparent distress Eyes: normal inspection, PERRL, EOMI ENT: normal ENT inspection, hearing grossly normal, pharynx normal Neck: supple, no JVD, trachea midline Respiratory/Chest: lungs clear, normal breath sounds, no respiratory distress, + pertinent finding (left chest TTP) Cardiovascular: regular rate, rhythm, no gallop, no murmur Abdomen / GI: normal bowel sounds, non tender, soft Extremities: normal inspection, no calf tenderness, no pedal edema Neurologic/Psychiatric: alert, normal mood/affect, oriented x 3 Skin: normal color, warm/dry, no rash Hospital Course 71 y/o female with a history of HTN, depression and GERD who presents with left sided chest pain. Initial EKG with some ST changes but these were transient and resolved after receiving fentanyl in ED. Positive family history of cardiac disease. Precordial chest pain--likely musculoskeletal. Pt had trauma to this area. - Admit to telemetry for observation. No acute events overnight. Pt in sinus rhythm with HR in 60s - Cardiac enzymes negative x 3 sets - Repeat EKG prior to discharge no ischemic changes - Chest x-ray negative for any acute changes - CTA chest negative for PE - Aspirin, Nitropaste - Fasting lipid panel shows elevated triglycerides, otherwise WNL - D/c on Lopid 600 mg PO BID - Cardiology consulted, appreciate recs: Spoke with Dr. Givens prior to discharge. Not likely cardiac in origin. Pt did not want to do stress test this morning due to her chest pain. Agreeable to outpatient stress. Resting echo normal. - Echo shows LVEF 60-65%. No WMA. - Pt advised to take Aleve q8h prn pain Hypokalemia--resolved - Potassium 2.9 on admission, replete with PO KCl - Repeat potassium 4.4 Hypertension--stable - Continue atenolol 75 mg daily, lisinopril/hydrochlorothiazide 20/12.5 mg PO qd Depression -Continue Zoloft 50 mg PO qd GERD -Continue omeprazole 20 mg PO qd DVT prophylaxis -SCDs Code Status -Level I, FULL RESUSCITATION STATUS Total Time Spent: Greater than 30 minutes This includes examination of the patient, discharge planning, medication reconciliation, and communication with other providers. Discharge Instructions Please refer to the electronic Patient Visit Report (Discharge Instructions) for additional information. Follow-Up F/u with cardiology 2-3 weeks for outpatient stress test. pt states she follows with Dr. Aguilar Additional Copies To Kalani Reina PA-C
== END 2016-10-14 13:50 | disposition home or self-care (01) | DRG 313 ==
LOC: C.EDB 21:30 → C.MED 10-14 00:20 → ENRESERV 10-14 01:05
PROVIDERS: ADMIT Family Medicine; ATTEND Hospitalist
DX: R07.89 Other chest pain (principal); R94.31 Abnormal electrocardiogram [ECG] [EKG]; E87.6 Hypokalemia; I25.10 Atherosclerotic heart disease of native coronary artery without angina pectoris; I10 Essential (primary) hypertension; K21.9 Gastro-esophageal reflux disease without esophagitis; F32.9 Major depressive disorder, single episode, unspecified; Z96.89 Presence of other specified functional implants; Z87.891 Personal history of nicotine dependence; Z82.49 Family history of ischemic heart disease and other diseases of the circulatory system; Z79.899 Other long term (current) drug therapy

== ENCOUNTER → 2016-11-27 | Outpatient (CLI) | payer OTHER ==
[~2016-11-27] MED LIST changes: +ATEN-173 PO; +LISI-787 PO; +NAPR1CAP12 PO; -OMEG10007 PO
--- NOTE | 2016-12-03 07:34 | MAMMOGRAPHY REPORT ---
BILATERAL DIGITAL SCREENING MAMMOGRAM TOMOSYNTHESIS WITH CAD: 11/27/2016 CLINICAL HISTORY: Routine screening examination. TECHNIQUE: Breast tomosynthesis in addition to standard 2D mammography was performed. Current study was also evaluated with a Computer Aided Detection (CAD) system. COMPARISON: Comparison is made to exams dated: 11/27/2015 mammogram, 11/23/2014 mammogram, 02/14/2012 mammogram, 10/15/2010 mammogram - [facility], and 09/07/2008. BREAST COMPOSITION: The tissue of both breasts is almost entirely fatty. FINDINGS: There are stable intramammary lymph nodes in each breast. Mild vascular calcification bila terally. No suspicious mass, architectural distortion or cluster of microcalcifications is seen. IMPRESSION: ACR BI-RADS CATEGORY 1: NEGATIVE There is no mammographic evidence of malignancy. A 1 year screening mammogram is recommended. The pa tient will receive written notification of the results. Approximately 10% of breast cancers are not detected with mammography. A negative mammographic report should not delay biopsy if a clinically suggestive mass is present. Tarah Porras M.D. ay/:12/02/2016 16:24:00 Freelance Web Designer: Betty Mckeon RT(R)(M)(BD), [facility] letter sent: Normal 1/2 BI-RADS Code: ACR BI-RADS Category 1: Negative
== END | disposition home or self-care (01) ==
LOC: C.MAMM 13:40
PROVIDERS: ATTEND Physician Assistant
DX: Z12.31 Encounter for screening mammogram for malignant neoplasm of breast (principal)

== ENCOUNTER → 2017-01-28 | Outpatient (CLI) | payer OTHER | END | disposition home or self-care (01) | LOC: C.MAMM 13:34 | PROVIDERS: ATTEND Physician Assistant | DX: M81.0 Age-related osteoporosis without current pathological fracture (principal) ==

== ENCOUNTER 2017-06-28 12:10 | Emergency (ER) | payer OTHER ==
[~2017-06-28] VITALS: Ht 157.5 cm; Wt 80.1 kg
[2017-06-28 12:12] VITALS: TEMP 36.7; Ht 157.5 cm; Wt 80.1 kg
[2017-06-28] MEDS ORDERED: SODIUM CHLORIDE 0.9% 1000ML 500 ML IV STA (12:18)
[2017-06-28] MEDS ORDERED: SODIUM CHLORIDE 0.9% 1000ML 1,000 ML IV STA (12:18)
[2017-06-28] MEDS ORDERED: LISI-787 PO (12:32)
[2017-06-28] MEDS ORDERED: PRAV10TA39 PO (12:32)
[2017-06-28] MEDS ORDERED: ACET1TAB84 PO (12:32)
[2017-06-28] MEDS ORDERED: ONDANSETRON INJ 2 MG/ML 2 ML VIAL IV STA (12:37)
[2017-06-28 12:49] LABS: BASO % 0.4 %; BASO ABS # 0.03 K/uL (0-0.2); EOS % 1.3 %; HEMATOCRIT 38.4 % (37-47); HEMOGLOBIN 12.9 g/dL (12.0-16.0); IG# 0.01 K/uL (0.00-0.02); LYMPH % 25.2 %; LYMPH ABS # 1.93 K/uL (1.2-3.4); MEAN CELL VOLUME 84.2 fL (80-100); MEAN CORPUSCULAR HEMOGLOBIN 28.3 pg (25-34); MEAN CORPUSCULAR HGB CONC 33.6 g/dl (32-36); MEAN PLATELET VOLUME 9.7 fL (7.4-10.4); MONO % 7.7 %; MONO ABS # 0.59 K/uL (0.11-0.59); NEUT % 65.3 %; NEUT ABS # 4.99 K/uL (1.4-6.5); PLATELET COUNT 189 K/uL (130-400); RED CELL DISTRIBUTION WIDTH CV 13.4 % (11.5-14.5); RED CELL DISTRIBUTION WIDTH SD 40.5 fL (36.4-46.3); WHITE BLOOD COUNT 7.65 K/uL (4.8-10.8)
[2017-06-28 13:06] LABS: ALBUMIN 3.4 gm/dl (3.4-5.0); ALT/SGPT 14 U/L (12-78); AST/SGOT 12 U/L (15-37); BLOOD UREA NITROGEN 13 mg/dl (7-18); CALCIUM 9.2 mg/dl (8.5-10.1); CARBON DIOXIDE 29 mmol/L (21-32); CREATININE 0.89 mg/dl (0.60-1.20); GLUCOSE 101 mg/dl (70-99); LIPASE 101 U/L (73-393); POTASSIUM 3.5 mmol/L (3.5-5.1); SODIUM 138 mmol/L (136-145)
[2017-06-28 13:11] LABS: ALKALINE PHOSPHATASE 76 U/L (45-117); TOTAL PROTEIN 7.5 gm/dl (6.4-8.2)
--- NOTE | 2017-06-28 13:51 | DIAGNOSTIC IMAGING REPORT ---
ABD/PELVIS WITHOUT FOR STONE HISTORY: 72 years-old Female right flank pain acute right-sided flank pain COMPARISON: CT abdomen and pelvis 04/17/2012 TECHNIQUE: Multiple axial CT images of the abdomen and pelvis were obtained without the use of IV contrast. A dose lowering technique was used consistent with the principals of GLADIS. FINDINGS: Mild dependent subsegmental bibasilar atelectasis. Mild prominence of the subpleural fat at the level lung bases. No pneumatosis or pneumoperitoneum. Imaged inferior cardiac chambers appear mildly enlarged. Mural fibrofatty changes of the left ventricular apex suggest sequela of prior myocardial infarction. Gallbladder appears to be surgically absent. There is no intrahepatic biliary ductal dilation or focal hepatic mass lesion identified. The spleen, pancreas and adrenal glands are within normal limits. Moderate nonspecific bilateral perinephric stranding without urolith or obstructive uropathy. Ureters are normal in caliber. Mild wall thickening of the bladder with mild perivesicular stranding. Prior hysterectomy. Phleboliths of the pelvis noted. Moderate atherosclerosis of the aorta without aneurysm. No bulky adenopathy. Small sliding-type hiatal hernia. No bowel obstruction or focal bowel wall thickening. Colonic diverticulosis without diverticulitis. Normal appendix. No ascites. 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 Soft tissues are unremarkable. Tiny fat filled periumbilical hernia, diastases 1.5 cm. There is a battery pack within the right gluteal tissues with single stimulator lead entering the right S3 to assess for neuroforamen terminating within the adjacent soft tissues of the presacral space. Bones appear intact. Posterior disc osteophyte complex at L5-S1. IMPRESSION: 1. No renal calculi or hydronephrosis. 2. Mild wall thickening of the bladder with perivesicular stranding. Correlate with urinalysis to exclude cystitis. 3. Prior cholecystectomy and hysterectomy. 4. Colonic diverticulosis without diverticulitis. 5. Small hiatal hernia. The above report was generated using voice recognition software. It may contain grammatical, syntax or spelling errors. Electronically signed by: Tristin Hartman M.D. 06/28/2017 1:50 PM Dictated Date/Time: 06/28/2017 1:42 PM
[2017-06-28] MEDS ORDERED: CEFTRIAXONE SOD INJ 1 GM ADDVIAL IV STA (14:03)
--- NOTE | 2017-06-28 14:13 | EMERGENCY ROOM VISIT NOTE ---
History Report prepared by Guilherme: Jewel Feliciano Under the Supervision of: Dr. Dash Jerez M.D. First contact with patient: 12:18 Chief Complaint: UNABLE TO VOID Stated Complaint: SICK IN STOMACH - CANT URINATE History of Present Illness The patient is a 72 year old female who presents to the Emergency Room with complaints of a persistent illness that started around 0200 this morning. She states that she mostly felt well yesterday, but then woke up around 0200 with "heartburn in [her] neck", and knew she was going to vomit. The patient states that she then got out of bed and went to the bathroom and had dry heaves. She adds that she has been having abdominal pain which she currently rates as a 5 out of 10 in severity. The patient states that she is still nauseous. She says that she has a bit of a headache but it is "not bad". The patient notes that she has had a "rash" on her head that is itchy for about a month. She has a history of a hysterectomy and a cholecystectomy. Pt denies LOC, fevers, chills, diaphoresis, visual changes, chest pain, breathing difficulties, back pain, melena, hematochezia, urinary symptoms, numbness, weakness, lymphadenopathy, or other complaints. Source of History: patient Onset: 0200 this morning Position: other (global) Symptom Intensity: 5/10 pain Quality: other (illness) Timing: other (persistent) Associated Symptoms: + headache, + nausea, + vomiting (dry heaves), + abdominal pain, + rash Note: No other associated symptoms noted. Review of Systems See HPI for pertinent positives and negatives. A total of ten systems were reviewed and were otherwise negative. Past Medical & Surgical Medical Problems: (1) Bronchitis (2) Chest pain (3) Headache (4) Headache (5) Hypertension (6) Hypertension (7) Precordial chest pain Family History Diabetes mellitus Hypertension Social History Smoking Status: Former Smoker Alcohol Use: none Drug Use: none Marital Status: Housing Status: lives with family Occupation Status: retired Current/Historical Medications Scheduled Acetaminophen (Tylenol Arthritis Ext Rel), 1,300 MG PO HS Atenolol (Tenormin), 50 MG PO DAILY Atenolol (Tenormin), 25 MG PO DAILY Ciprofloxacin Hcl (Cipro), 500 MG PO BID Lisinopril & Hydrochlorothiazi (Zestoretic 20-12.5 mg), 1 TAB PO DAILY Omeprazole (Prilosec), 20 MG PO DAILY Ondasetron Odt (Zofran Odt), 4 MG SL Q6H Pravastatin Sodium (Pravastatin Sodium), 5 MG PO DAILY Sertraline (Zoloft), 50 MG PO DAILY Scheduled PRN Epinephrine (Epipen 2-Toño), 0.3 MG INJ UD PRN for ALLERGIC REACTION Allergies Coded Allergies: Diazepam (Unverified Allergy, Mild, 10/13/16) Morphine (Unverified Allergy, Mild, 10/13/16) Doxycycline (Verified Allergy, Unknown, ANAPHYLAXIS, 10/13/16) Sulfa Drugs (Verified Allergy, Unknown, ., 10/13/16) Physical Exam Vital Signs Date Time Temp Pulse Resp B/P (MAP) Pulse Ox O2 Delivery O2 Flow Rate FiO2 06/28/17 17:00 52 18 124/72 98 Room Air 06/28/17 15:30 60 18 113/76 98 Room Air 06/28/17 12:53 63 06/28/17 12:12 36.7 62 18 151/75 98 Room Air Physical Exam GENERAL: Awake, alert, well-appearing, in no distress HENT: Normocephalic, atraumatic. Oropharynx unremarkable. EYES: Normal conjunctiva. Sclera non-icteric. NECK: Supple. No nuchal rigidity. FROM. No masses. RESPIRATORY: Clear to auscultation. No wheezes. No rales. Normal respiratory effort. CARDIAC: Normal rate. Normal rhythm. No murmurs. No rubs. Extremities warm and well perfused. Pulses equal. No JVD. GI: Soft, non-distended. Right upper quadrant tenderness. No rebound or guarding. No masses. RECTAL: Deferred. MUSCULOSKELETAL: Atraumatic. Chest examination reveals no tenderness. The back is symmetrical on inspection without obvious abnormality. Right CVA tenderness. No joint edema. LOWER EXTREMITIES: Calves are equal size bilaterally and non-tender. No edema. No discoloration. NEURO: Normal sensorium. No sensory or motor deficits noted. SKIN: No rash or jaundice noted. Medical Decision & Procedures ER Provider Diagnostic Interpretation: CT: Radiology results as stated below per my review and radiologist interpretation ABD/PELVIS WITHOUT FOR STONE HISTORY: 72 years-old Female right flank pain acute right-sided flank pain COMPARISON: CT abdomen and pelvis 04/17/2012 TECHNIQUE: Multiple axial CT images of the abdomen and pelvis were obtained without the use of IV contrast. A dose lowering technique was used consistent with the principals of GLADIS. FINDINGS: Mild dependent subsegmental bibasilar atelectasis. Mild prominence of the subpleural fat at the level lung bases. No pneumatosis or pneumoperitoneum. Imaged inferior cardiac chambers appear mildly enlarged. Mural fibrofatty changes of the left ventricular apex suggest sequela of prior myocardial infarction. Gallbladder appears to be surgically absent. There is no intrahepatic biliary ductal dilation or focal hepatic mass lesion identified. The spleen, pancreas and adrenal glands are within normal limits. Moderate nonspecific bilateral perinephric stranding without urolith or obstructive uropathy. Ureters are normal in caliber. Mild wall thickening of the bladder with mild perivesicular stranding. Prior hysterectomy. Phleboliths of the pelvis noted. Moderate atherosclerosis of the aorta without aneurysm. No bulky adenopathy. Small sliding-type hiatal hernia. No bowel obstruction or focal bowel wall thickening. Colonic diverticulosis without diverticulitis. Normal appendix. No ascites. 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 Soft tissues are unremarkable. Tiny fat filled periumbilical hernia, diastases 1.5 cm. There is a battery pack within the right gluteal tissues with single stimulator lead entering the right S3 to assess for neuroforamen terminating within the adjacent soft tissues of the presacral space. Bones appear intact. Posterior disc osteophyte complex at L5-S1. IMPRESSION: 1. No renal calculi or hydronephrosis. 2. Mild wall thickening of the bladder with perivesicular stranding. Correlate with urinalysis to exclude cystitis. 3. Prior cholecystectomy and hysterectomy. 4. Colonic diverticulosis without diverticulitis. 5. Small hiatal hernia. The above report was generated using voice recognition software. It may contain grammatical, syntax or spelling errors. Electronically signed by: Tristin Hartman M.D. 06/28/2017 1:50 PM Dictated Date/Time: 06/28/2017 1:42 PM Laboratory Results 06/28/17 12:35 Red Blood Count 4.56, Mean Corpuscular Volume 84.2, Mean Corpuscular Hemoglobin 28.3, Mean Corpuscular Hemoglobin Concent 33.6, Mean Platelet Volume 9.7, Neutrophils (%) (Auto) 65.3, Lymphocytes (%) (Auto) 25.2, Monocytes (%) (Auto) 7.7, Eosinophils (%) (Auto) 1.3, Basophils (%) (Auto) 0.4, Neutrophils # (Auto) 4.99, Lymphocytes # (Auto) 1.93, Monocytes # (Auto) 0.59, Eosinophils # (Auto) 0.10, Basophils # (Auto) 0.03 06/28/17 12:35 Test 06/28/17 12:35 06/28/17 12:54 White Blood Count 7.65 K/uL (4.8-10.8) Red Blood Count 4.56 M/uL (4.2-5.4) Hemoglobin 12.9 g/dL (12.0-16.0) Hematocrit 38.4 % (37-47) Mean Corpuscular Volume 84.2 fL (80-100) Mean Corpuscular Hemoglobin 28.3 pg (25-34) Mean Corpuscular Hemoglobin Concent 33.6 g/dl (32-36) Platelet Count 189 K/uL (130-400) Mean Platelet Volume 9.7 fL (7.4-10.4) Neutrophils (%) (Auto) 65.3 % Lymphocytes (%) (Auto) 25.2 % Monocytes (%) (Auto) 7.7 % Eosinophils (%) (Auto) 1.3 % Basophils (%) (Auto) 0.4 % Neutrophils # (Auto) 4.99 K/uL (1.4-6.5) Lymphocytes # (Auto) 1.93 K/uL (1.2-3.4) Monocytes # (Auto) 0.59 K/uL (0.11-0.59) Eosinophils # (Auto) 0.10 K/uL (0-0.5) Basophils # (Auto) 0.03 K/uL (0-0.2) RDW Standard Deviation 40.5 fL (36.4-46.3) RDW Coefficient of Variation 13.4 % (11.5-14.5) Immature Granulocyte % (Auto) 0.1 % Immature Granulocyte # (Auto) 0.01 K/uL (0.00-0.02) Anion Gap 5.0 mmol/L (3-11) Est Creatinine Clear Calc Drug Dose 56.8 ml/min Estimated GFR () 75.6 Estimated GFR (Non- 65.2 BUN/Creatinine Ratio 14.8 (10-20) Calcium Level 9.2 mg/dl (8.5-10.1) Total Bilirubin 0.5 mg/dl (0.2-1) Direct Bilirubin < 0.1 mg/dl (0-0.2) Aspartate Amino Transf (AST/SGOT) 12 U/L (15-37) Alanine Aminotransferase (ALT/SGPT) 14 U/L (12-78) Alkaline Phosphatase 76 U/L (45-117) Troponin I < 0.015 ng/ml (0-0.045) Total Protein 7.5 gm/dl (6.4-8.2) Albumin 3.4 gm/dl (3.4-5.0) Lipase 101 U/L (73-393) Urine Color YELLOW Urine Appearance CLEAR (CLEAR) Urine pH 6.5 (4.5-7.5) Urine Specific [place] 1.018 (1.000-1.030) Urine Protein NEG (NEG) Urine Glucose (UA) NEG (NEG) Urine Ketones NEG (NEG) Urine Occult Blood NEG (NEG) Urine Nitrite POS (NEG) Urine Bilirubin NEG (NEG) Urine Urobilinogen NEG (NEG) Urine Leukocyte Esterase MODERATE (NEG) Urine WBC (Auto) >30 /hpf (0-5) Urine RBC (Auto) 0-4 /hpf (0-4) Urine Hyaline Casts (Auto) 5-10 /lpf (0-5) Urine Epithelial Cells (Auto) 5-10 /lpf (0-5) Urine Bacteria (Auto) 4+ (NEG) Urine Pathogenic Casts 0-3 GRANULAR CASTS /lpf (0) Laboratory results reviewed by me Medications Administered Medications (Trade) Dose Ordered Sig/Kai Route Start Time Stop Time Status Last Admin Dose Admin Sodium Chloride 1,000 ml @ 125 mls/hr Q8H STAT IV 06/28/17 12:18 06/28/17 17:47 DC 06/28/17 13:07 125 MLS/HR Sodium Chloride 500 ml @ 999 mls/hr Q31M STAT IV 06/28/17 12:18 06/28/17 12:48 DC 06/28/17 12:47 999 MLS/HR Ondansetron HCl (Zofran Inj) 4 mg NOW STAT IV 06/28/17 12:37 06/28/17 12:38 DC 06/28/17 12:47 4 MG Ceftriaxone Sodium (Rocephin Inj) 1 gm NOW STAT IV 06/28/17 14:03 06/28/17 14:05 DC 06/28/17 14:12 1 GM ECG Per My Interpretation Indication: nausea Rate (beats per minute): 59 Rhythm: sinus bradycardia Findings: no acute ischemic change, other (nonspecific ST changes, electrical interference from stimulator) ED Course 1218: NSS 500 ml @ 999 mls/hr, NSS 1000 ml @ 125 mls/hr IV. 1235: The patient was evaluated in room C10. A complete history and physical exam was performed. 1237: Zofran Inj 4 mg IV. 1403: Rocephin Inj 1 gm IV. 1447: I reevaluated the patient and she is doing well and will get an oral challenge. 1645: I reevaluated the patient and she feels good and wants to go home. Discussed results and discharge instructions: she verbalized understanding and agreement. The patient is ready for discharge. Medical Decision Prior records/ancillary studies reviewed. Triage Nursing notes reviewed and agree them. Additional history obtained from family. The patient's history was concerning for urinary symptoms, vomiting, abdominal pain. Differential diagnosis: Etiologies such as UTI, pancreatitis, obstruction, appendicitis, diverticulitis , PUD, biliary pathology,mesenteric ischemia, aortic pathology, infections, inflammatory bowel disease, renal colic, as well as others were entertained. Physical examination findings: As above. Mild right upper quadrant tenderness. Moderate right CVA tenderness. ER treatment provided: Normal saline hydration IV Zofran IV Rocephin On reassessment the patient felt better. She was tolerating p.o. intake. Diagnostics interpreted by me: ECG: Normal except for stimulator artifact. No ischemia. The labs revealed an unremarkable CBC and chemistry panel. The patient's urinalysis was grossly abnormal concerning for infection. Culture pending. Imaging studies: CT scan as above. Concerning for cystitis, possible pyelonephritis. The patient is doing well. She was treated as above in doing much better. I discussed outpatient treatment with her and she feels comfortable. If she worsens she will be back. She will be prescribed Cipro she is allergic to Bactrim. The patient also be given a prescription for Zofran. She will have close follow-up with her outpatient physician. By the evaluation outlined above other emergent etiologies such as those listed in the differential, as well as others, were deemed relatively unlikely. The patient was educated about the findings as listed above. All questions were answered and the patient was pleased with the treatment. Return instructions were outlined and the patient was discharged in stable condition. The patient was referred to her PCP for follow-up for a recheck of the current condition. Medication Reconcilliation Current Medication List: was personally reviewed by me Blood Pressure Screening Patient's blood pressure: Elevated blood pressure Blood pressure disposition: Referred to PCP Impression Primary Impression: Pyelonephritis Scribe Attestation The scribe's documentation has been prepared under my direction and personally reviewed by me in its entirety. I confirm that the note above accurately reflects all work, treatment, procedures, and medical decision making performed by me. Departure Information Dispostion Home / Self-Care Prescriptions Ondasetron Odt (ZOFRAN ODT) 4 Mg Tab 4 MG SL Q6H for Nausea, #6 TAB Prov: Dash Jerez MD 06/28/17 Ciprofloxacin Hcl (CIPRO) 500 Mg Tab 500 MG PO BID, #14 TAB Prov: Dash Jerez MD 06/28/17 Referrals Kalani Reina PA-C (PCP) Patient Instructions [facility] Additional Instructions Ciprofloxacin(Cipro) 500mg: Take one pill twice daily for 7 days for your urine infection. All antibiotics can cause diarrhea. If this occurs and you feel worse or it does not resolve in 1-2 days follow up with your doctor or return to the Emergency Department as this could be signs of serious underlying problems. If you experience any pain in your tendons or any tendon injury return to the ER for re-evaluation. Any medication can cause an allergic reaction, stop the pills immediately and return to the ER for rash, hives, breathing difficulties, or swelling. Zofran 4 mg oral dissolving tablets: take one tablet and allow it to melt in your mouth every 4 hours as needed for nausea. Acetaminophen(Tylenol) may be used for fever or pain. Use 1000mg every six hours as needed. Avoid using more than 4000mg in a 24 hour period. Rest and drink plenty of fluids. Continue current medications. Return to the ER immediately for worsening or persistent abdominal pain, vomiting, fevers, back or flank pain, worsening of your condition, or as needed. Follow up with your primary physician within 2-3 days for a recheck of the current condition.
[2017-06-28] MEDS ORDERED: CIPR-255 PO (16:47)
[2017-06-28] MEDS ORDERED: ONDA4TAB10 SL (16:47)
[2017-06-28 17:00] VITALS: BP 124/72; PULSE 52; O2SAT 98
--- NOTE | 2017-06-30 13:45 | Pharmacy Progress Note ---
ED Pharmacist Culture FollowUp Date of Service: June 30, 2017. Patient was sent home with a prescription for ciprofloxacin, which should cover the E. coli growing from the patient's urine culture.
== END 2017-06-28 17:30 | disposition home or self-care (01) ==
LOC: C.EDB 12:11 → C.EDC 17:30
DX: N12 Tubulo-interstitial nephritis, not specified as acute or chronic (principal); R51 Headache; Z90.710 Acquired absence of both cervix and uterus; Z90.49 Acquired absence of other specified parts of digestive tract; I10 Essential (primary) hypertension; Z87.891 Personal history of nicotine dependence; Z83.3 Family history of diabetes mellitus; Z82.49 Family history of ischemic heart disease and other diseases of the circulatory system; Z79.899 Other long term (current) drug therapy; Z88.8 Allergy status to other drugs, medicaments and biological substances; Z88.2 Allergy status to sulfonamides; Z88.5 Allergy status to narcotic agent